=== PATIENT | male | born 1965 | race Caucasian/White ===

== ENCOUNTER → 2020-08-08 | Outpatient (CLI) | payer OTHER | END | disposition home or self-care (01) | LOC: CFH 10:08 | PROVIDERS: ATTEND Chiropractor | DX: M51.35 Other intervertebral disc degeneration, thoracolumbar region (principal); M47.812 Spondylosis without myelopathy or radiculopathy, cervical region; M99.01 Segmental and somatic dysfunction of cervical region; M99.02 Segmental and somatic dysfunction of thoracic region; M99.03 Segmental and somatic dysfunction of lumbar region; M99.04 Segmental and somatic dysfunction of sacral region | CPT/HCPCS: 72040; 72072; 72100; 72170 ==